=== PATIENT | male | born 1980 | race African-American/Black ===

== ENCOUNTER 2020-10-02 01:47 | Emergency (ER) | payer OTHER ==
[~2020-10-02] VITALS: Ht 175.3 cm; Wt 68.0 kg
[2020-10-02] MEDS ORDERED: KETO10TA2 PO (06:23)
== END 2020-10-02 06:32 | disposition home or self-care (01) ==
LOC: ER 01:47
DX: S63.115A Dislocation of metacarpophalangeal joint of left thumb, initial encounter (principal); X50.9XXA Other and unspecified overexertion or strenuous movements or postures, initial encounter; Y93.89 Activity, other specified; Y92.488 Other paved roadways as the place of occurrence of the external cause; Y99.8 Other external cause status; Z20.822 Contact with and (suspected) exposure to COVID-19